=== PATIENT | male | born 1935 | race Caucasian/White ===

== ENCOUNTER 2019-11-21 04:51 | Inpatient (IN) | payer MEDICARE ==
[~2019-11-21] VITALS: Ht 167.6 cm; Wt 50.1 kg
[2019-11-21] VITALS: BP 148/81
[2019-11-21 06:47] LABS: CHLORIDE 108 mEq/L (98-107)
[2019-11-21 07:07] LABS: INR 1.2; PARTIAL THROMBOPLASTIN TIME 30.8 sec (23.4-31.0); PROTHROMBIN TIME 12.9 sec (9.6-11.0)
[2019-11-21] MEDS ORDERED: SODIUM CHLORIDE 0.9% 250 ML IV ONE (07:10)
[2019-11-21] MEDS ORDERED: ACETAMINOPHEN 325MG TABLET PO ONE (07:15)
[2019-11-21 07:19] LABS: BASOPHILS % 0.8 % (0.0-2.0); EOSINOPHILS % 1.4 % (0.0-5.0); HEMATOCRIT. 35.7 % (42.0-52.0); HEMOGLOBIN. 12.1 g/dL (14.0-18.0); LYMPHOCYTES % 18.8 % (20.0-50.0); MEAN CORPUSCULAR HEMOGLOBIN 32.2 pg (28.0-32.0); MEAN PLATELET VOLUME 7.9 fl (7.4-10.4); MONOCYTES % 9.8 % (2.0-8.0); NEUTROPHILS % 69.2 % (40.0-76.0); PLATELET 237 x1000/uL (130-400); RED BLOOD CELL COUNT 3.76 mill/uL (4.7-6.1); RED CELL DISTRIBUTION WIDTH 14.7 % (11.6-14.6)
[2019-11-21 07:30] LABS: CREATINE KINASE MB FRACTION 4.4 ng/mL (0.5-3.6)
[2019-11-21 08:20] LABS: CLARITY URINE CLEAR (CLEAR); COLOR URINE YELLOW (YELLOW); KETONES URINE TRACE (NEGATIVE); LEUKOCYTE ESTERASE URINE NEGATIVE (NEGATIVE); NITRITE URINE NEGATIVE (NEGATIVE); OCCULT BLOOD URINE NEGATIVE (NEGATIVE); PH URINE 5.5 (4.5-8.0); PROTEIN URINE NEGATIVE (NEGATIVE); SPECIFIC GRAVITY URINE 1.012 (1.005-1.030); UROBILINOGEN URINE 0.2 E.U./dL (0.2-1.0)
[2019-11-21] MEDS ORDERED: CLONIDINE 0.1MG TABLET PO PRN (10:45)
[2019-11-21] MEDS ORDERED: DIPHENHYDRAMINE 50MG/ML VIAL IV PRN (10:45)
[2019-11-21] MEDS ORDERED: ACETAMINOPHEN 325MG TABLET PO PRN ×2 (10:45)
[2019-11-21] MEDS ORDERED: ONDANSETRON HCL 4MG/2ML INJ IV PRN (10:45)
[2019-11-21] MEDS ORDERED: MAGNESIUM/ALUMINUM HYDROXIDE/SIMETHICONE 30ML UDC PO PRN (10:45)
[2019-11-21 12:00] VITALS: BP 132/71
[2019-11-21] MEDS ORDERED: ENOXAPARIN 30MG/0.3ML SYR SUBCUT SCH (12:00)
[2019-11-21 12:57] VITALS: BP 131/71
[2019-11-21] MEDS: SODIUM CHLORIDE 0.9% INJ 3ML FLUSH IVF SCH ×2 (14:20→21:46)
[2019-11-21 16:00] VITALS: BP 154/77
[2019-11-21] MEDS: ASPIRIN 81MG EC TABLET PO SCH (16:01)
[2019-11-21] MEDS: DOCUSATE SODIUM 100MG CAPSULE PO SCH ×2 (17:00→17:09)
[2019-11-21 20:17] VITALS: BP 139/83
[2019-11-21] MEDS ORDERED: ZOLPIDEM TARTRATE 5MG TABLET PO PRN (21:00)
[2019-11-21 21:40] LABS: VITAMIN B12 SERUM 345 pg/mL (211-911)
[2019-11-22 00:37] VITALS: BP 148/81
[2019-11-22 04:00] VITALS: BP 142/95
[2019-11-22] MEDS: SODIUM CHLORIDE 0.9% INJ 3ML FLUSH IVF SCH ×3 (06:35→20:48)
[2019-11-22 06:52] LABS: EOSINOPHILS % 2.7 % (0.0-5.0); HEMATOCRIT. 34.8 % (42.0-52.0); HEMOGLOBIN. 11.8 g/dL (14.0-18.0); LYMPHOCYTES % 17.7 % (20.0-50.0); MEAN CORPUSCULAR HEMOGLOBIN 32.1 pg (28.0-32.0); MEAN CORPUSCULAR VOLUME 94.9 fL (80.0-94.0); MEAN PLATELET VOLUME 7.8 fl (7.4-10.4); MONOCYTES % 12.5 % (2.0-8.0); NEUTROPHILS % 66.1 % (40.0-76.0); PLATELET 235 x1000/uL (130-400); RED BLOOD CELL COUNT 3.67 mill/uL (4.7-6.1); RED CELL DISTRIBUTION WIDTH 14.5 % (11.6-14.6)
[2019-11-22 06:53] LABS: CHLORIDE 107 mEq/L (98-107)
[2019-11-22 08:01] VITALS: BP 144/58
[2019-11-22] MEDS: DOCUSATE SODIUM 100MG CAPSULE PO SCH ×2 (08:52→18:36)
[2019-11-22] MEDS: ENOXAPARIN 40MG/0.4ML SYR SUBCUT SCH (08:53)
[2019-11-22] MEDS: ASPIRIN 81MG EC TABLET PO SCH (08:53)
[2019-11-22] MEDS ORDERED: DIGOXIN 500MCG/2ML AMP IV NR ×3 (10:00→20:30)
[2019-11-22 12:12] VITALS: BP 132/64
[2019-11-22] MEDS ORDERED: CYANOCOBALAMIN 1000MCG/ML VIAL IM NR (15:45)
[2019-11-22 16:20] VITALS: BP 136/74
[2019-11-22] MEDS: DIGOXIN 500MCG/2ML AMP IV SCH (18:35)
[2019-11-22 20:00] VITALS: BP 117/66
[2019-11-23] VITALS (8 sets, daily range): BP systolic 103–167; BP diastolic 59–98
[2019-11-23] MEDS: SODIUM CHLORIDE 0.9% INJ 3ML FLUSH IVF SCH ×3 (05:59→21:24)
[2019-11-23] MEDS: DOCUSATE SODIUM 100MG CAPSULE PO SCH ×2 (09:17→17:33)
[2019-11-23] MEDS: ASPIRIN 81MG EC TABLET PO SCH (09:17)
[2019-11-23] MEDS: ENOXAPARIN 40MG/0.4ML SYR SUBCUT SCH (09:17)
[2019-11-23] MEDS: DILTIAZEM HCL 30MG TABLET PO SCH ×3 (11:36→18:00)
[2019-11-23] MEDS: DIGOXIN 500MCG/2ML AMP IV SCH (17:33)
[2019-11-24 00:22] VITALS: BP 145/81
[2019-11-24] MEDS: DILTIAZEM HCL 30MG TABLET PO SCH ×3 (00:37→12:00)
[2019-11-24 04:42] VITALS: BP 138/72
[2019-11-24] MEDS: SODIUM CHLORIDE 0.9% INJ 3ML FLUSH IVF SCH ×2 (05:31→14:44)
[2019-11-24 07:31] LABS: EOSINOPHILS % 1.7 % (0.0-5.0); HEMATOCRIT. 36.2 % (42.0-52.0); HEMOGLOBIN. 12.5 g/dL (14.0-18.0); LYMPHOCYTES % 10.9 % (20.0-50.0); MEAN CORPUSCULAR HEMOGLOBIN 32.5 pg (28.0-32.0); MEAN CORPUSCULAR VOLUME 94.4 fL (80.0-94.0); MEAN PLATELET VOLUME 8.1 fl (7.4-10.4); MONOCYTES % 12.2 % (2.0-8.0); NEUTROPHILS % 74.2 % (40.0-76.0); PLATELET 223 x1000/uL (130-400); RED BLOOD CELL COUNT 3.84 mill/uL (4.7-6.1); RED CELL DISTRIBUTION WIDTH 14.2 % (11.6-14.6)
[2019-11-24 08:00] VITALS: BP 132/53
[2019-11-24 08:01] LABS: CHLORIDE 102 mEq/L (98-107)
[2019-11-24] MEDS: ENOXAPARIN 40MG/0.4ML SYR SUBCUT SCH (09:17)
[2019-11-24] MEDS: ASPIRIN 81MG EC TABLET PO SCH (09:17)
[2019-11-24] MEDS: DOCUSATE SODIUM 100MG CAPSULE PO SCH (09:17)
[2019-11-24 12:00] VITALS: BP 160/72
[2019-11-24 16:00] VITALS: BP 105/60
[2019-11-24 16:16] VITALS: BP 105/60
[2019-11-24] MEDS ORDERED: DIGOXIN 125MCG TABLET PO SCH (18:00)
== END 2019-11-24 17:25 | DRG 74 ==
LOC: ER 04:51 → 6WST 06:41 → ENRESERV 09:58
PROVIDERS: ADMIT Internal Medicine; ATTEND Internal Medicine
DX: G90.8 Other disorders of autonomic nervous system (principal); I11.9 Hypertensive heart disease without heart failure; I44.0 Atrioventricular block, first degree; I48.0 Paroxysmal atrial fibrillation; M47.812 Spondylosis without myelopathy or radiculopathy, cervical region; M48.02 Spinal stenosis, cervical region; G93.89 Other specified disorders of brain; M79.605 Pain in left leg; E78.5 Hyperlipidemia, unspecified; E78.00 Pure hypercholesterolemia, unspecified; I25.10 Atherosclerotic heart disease of native coronary artery without angina pectoris; R00.0 Tachycardia, unspecified; R29.6 Repeated falls; R53.81 Other malaise; W18.39XA Other fall on same level, initial encounter; Z86.73 Personal history of transient ischemic attack (TIA), and cerebral infarction without residual deficits; Z79.01 Long term (current) use of anticoagulants; I25.2 Old myocardial infarction; Z88.8 Allergy status to other drugs, medicaments and biological substances; Y93.89 Activity, other specified; Y92.89 Other specified places as the place of occurrence of the external cause; Y99.8 Other external cause status
CPT/HCPCS: 36415; 71045; 72170; 73590; 80048; 80053; 81003; 82550; 82553; 82607; 82962; 83735; 83880; 84443; 84484; 85025; 93005; 93306; 97116; 97162; 97166; 99285; J1160; J1650; J3420; J7050

== ENCOUNTER 2019-11-24 17:30 | Inpatient (IN) | payer MEDICARE ==
[~2019-11-24] VITALS: Ht 167.6 cm; Wt 65.4 kg
[2019-11-24] MEDS ORDERED: DIPHENHYDRAMINE 50MG/ML VIAL IV PRN (18:30)
[2019-11-24] MEDS ORDERED: ONDANSETRON HCL 4MG/2ML INJ IV PRN (18:30)
[2019-11-24] MEDS ORDERED: ACETAMINOPHEN 325MG TABLET PO PRN (18:30)
[2019-11-24] MEDS ORDERED: MAGNESIUM/ALUMINUM HYDROXIDE/SIMETHICONE 30ML UDC PO PRN (18:30)
[2019-11-24] MEDS ORDERED: CLONIDINE 0.1MG TABLET PO PRN (18:30)
[2019-11-24 18:40] VITALS: BP 157/72
[2019-11-24 20:00] VITALS: BP 157/72
[2019-11-24] MEDS ORDERED: ZOLPIDEM TARTRATE 5MG TABLET PO PRN (21:00)
[2019-11-24] MEDS: DILTIAZEM HCL 30MG TABLET PO SCH (22:03)
[2019-11-24] MEDS: ACETAMINOPHEN 325MG TABLET PO PRN (22:03)
[2019-11-25] MEDS: ACETAMINOPHEN 325MG TABLET PO PRN ×2 (05:45→21:05)
[2019-11-25] MEDS: DILTIAZEM HCL 30MG TABLET PO SCH ×3 (05:46→21:03)
[2019-11-25 07:31] VITALS: BP 144/64
[2019-11-25] MEDS: ASPIRIN 81MG EC TABLET PO SCH (08:11)
[2019-11-25] MEDS: DOCUSATE SODIUM 100MG CAPSULE PO SCH ×2 (08:11→17:19)
[2019-11-25] MEDS: ENOXAPARIN 40MG/0.4ML SYR SUBCUT SCH (08:12)
[2019-11-25] MEDS ORDERED: NA PHOS,M-B/NA PHOS,DI-BA ENEMA 118ML PR PRN (12:45)
[2019-11-25] MEDS: BISACODYL 10MG SUPP PR PRN (14:00)
[2019-11-25] MEDS: POLYVINYL ALCOHOL OPHTH DROPS 15ML BOTHEYE PRN (14:52)
[2019-11-25] MEDS: DIGOXIN 125MCG TABLET PO SCH (17:19)
[2019-11-25 20:00] VITALS: BP 162/67
[2019-11-25 21:41] VITALS: BP 149/65
[2019-11-26] MEDS: DILTIAZEM HCL 30MG TABLET PO SCH ×3 (05:42→21:01)
[2019-11-26 07:31] LABS: BASOPHILS % 0.6 % (0.0-2.0); EOSINOPHILS % 2.9 % (0.0-5.0); HEMOGLOBIN. 11.7 g/dL (14.0-18.0); LYMPHOCYTES % 11.5 % (20.0-50.0); MEAN CORPUSCULAR HEMOGLOBIN 32.4 pg (28.0-32.0); MEAN PLATELET VOLUME 8.1 fl (7.4-10.4); MONOCYTES % 11.4 % (2.0-8.0); NEUTROPHILS % 73.6 % (40.0-76.0); PLATELET 245 x1000/uL (130-400); RED BLOOD CELL COUNT 3.61 mill/uL (4.7-6.1); RED CELL DISTRIBUTION WIDTH 14.2 % (11.6-14.6)
[2019-11-26 07:50] LABS: CHLORIDE 99 mEq/L (98-107)
[2019-11-26 08:00] VITALS: BP 153/52
[2019-11-26] MEDS: DOCUSATE SODIUM 100MG CAPSULE PO SCH ×2 (10:01→18:03)
[2019-11-26] MEDS: ASPIRIN 81MG EC TABLET PO SCH (10:01)
[2019-11-26] MEDS: ENOXAPARIN 40MG/0.4ML SYR SUBCUT SCH (10:01)
[2019-11-26] MEDS ORDERED: ALLO100T MT (12:06)
[2019-11-26] MEDS ORDERED: DOFE500C4 MT (12:06)
[2019-11-26] MEDS ORDERED: MIRT15TA6 MT (12:06)
[2019-11-26] MEDS ORDERED: BIMA2.5D4 EACHEYE (12:06)
[2019-11-26] MEDS ORDERED: POLY119P2 MT (12:06)
[2019-11-26] MEDS ORDERED: TIMO5DRO32 EACHEYE (12:06)
[2019-11-26] MEDS ORDERED: RIVA20TA MT (12:06)
[2019-11-26] MEDS ORDERED: PRAV20TA57 MT (12:06)
[2019-11-26] MEDS ORDERED: TAMS-11 PO (12:06)
[2019-11-26] MEDS ORDERED: RIVAROXABAN 10 MG TABLET PO SCH (17:00)
[2019-11-26] MEDS: DIGOXIN 125MCG TABLET PO SCH (18:02)
[2019-11-26 20:00] VITALS: BP 156/76
[2019-11-26] MEDS: TIMOLOL MALEATE 0.5% OPHTH DROPS 5ML EACHEYE SCH (20:59)
[2019-11-26] MEDS: LATANOPROST 0.005% OPHTH DROPS 2.5ML EACHEYE SCH (20:59)
[2019-11-26] MEDS ORDERED: NON FORMULARY PATIENT HOME MED PO SCH (21:00)
[2019-11-26] MEDS ORDERED: NON FORMULARY PATIENT HOME MED OP SCH (21:00)
[2019-11-26] MEDS: TAMSULOSIN HCL 0.4MG SR CAPSULE PO SCH (21:00)
[2019-11-26] MEDS: ATORVASTATIN CALCIUM 10MG TABLET PO SCH (21:00)
[2019-11-27 08:09] VITALS: BP 143/68
[2019-11-27] MEDS: ASPIRIN 81MG EC TABLET PO SCH (09:59)
[2019-11-27] MEDS: TIMOLOL MALEATE 0.5% OPHTH DROPS 5ML EACHEYE SCH ×2 (10:00→22:52)
[2019-11-27] MEDS: DOCUSATE SODIUM 100MG CAPSULE PO SCH ×2 (10:00→16:59)
[2019-11-27] MEDS: ALLOPURINOL 100 MG TABLET PO SCH (10:00)
[2019-11-27] MEDS: DILTIAZEM HCL 30MG TABLET PO SCH ×3 (10:00→23:03)
[2019-11-27] MEDS: DIGOXIN 125MCG TABLET PO SCH (16:59)
[2019-11-27] MEDS: RIVAROXABAN 15 MG TABLET PO SCH (16:59)
[2019-11-27 20:00] VITALS: BP 109/83
[2019-11-27] MEDS: LATANOPROST 0.005% OPHTH DROPS 2.5ML EACHEYE SCH (22:52)
[2019-11-27] MEDS: TAMSULOSIN HCL 0.4MG SR CAPSULE PO SCH (22:53)
[2019-11-27] MEDS: ATORVASTATIN CALCIUM 10MG TABLET PO SCH (22:54)
[2019-11-28] MEDS: DILTIAZEM HCL 30MG TABLET PO SCH ×3 (06:00→21:59)
[2019-11-28 06:45] LABS: BASOPHILS % 1.2 % (0.0-2.0); EOSINOPHILS % 4.5 % (0.0-5.0); HEMATOCRIT. 32.6 % (42.0-52.0); HEMOGLOBIN. 11.1 g/dL (14.0-18.0); LYMPHOCYTES % 15.9 % (20.0-50.0); MEAN CORPUSCULAR HEMOGLOBIN 32.3 pg (28.0-32.0); MEAN CORPUSCULAR VOLUME 94.6 fL (80.0-94.0); MEAN PLATELET VOLUME 7.9 fl (7.4-10.4); MONOCYTES % 13.2 % (2.0-8.0); NEUTROPHILS % 65.2 % (40.0-76.0); PLATELET 251 x1000/uL (130-400); RED BLOOD CELL COUNT 3.44 mill/uL (4.7-6.1); RED CELL DISTRIBUTION WIDTH 14.2 % (11.6-14.6)
[2019-11-28 07:27] LABS: CHLORIDE 98 mEq/L (98-107)
[2019-11-28 08:44] VITALS: BP 140/61
[2019-11-28] MEDS: ALLOPURINOL 100 MG TABLET PO SCH (09:31)
[2019-11-28] MEDS: ASPIRIN 81MG EC TABLET PO SCH (09:31)
[2019-11-28] MEDS: DOCUSATE SODIUM 100MG CAPSULE PO SCH ×2 (09:31→17:18)
[2019-11-28] MEDS: TIMOLOL MALEATE 0.5% OPHTH DROPS 5ML EACHEYE SCH ×2 (09:32→22:00)
[2019-11-28] MEDS: RIVAROXABAN 15 MG TABLET PO SCH (17:18)
[2019-11-28] MEDS: BISACODYL 10MG SUPP PR PRN (17:19)
[2019-11-28 20:00] VITALS: BP 127/72
[2019-11-28] MEDS: ATORVASTATIN CALCIUM 10MG TABLET PO SCH (21:59)
[2019-11-28] MEDS: TAMSULOSIN HCL 0.4MG SR CAPSULE PO SCH (22:00)
[2019-11-28] MEDS: LATANOPROST 0.005% OPHTH DROPS 2.5ML EACHEYE SCH (22:00)
[2019-11-29] MEDS: DILTIAZEM HCL 30MG TABLET PO SCH ×3 (06:00→21:52)
[2019-11-29 08:00] VITALS: BP 122/61
[2019-11-29] MEDS: ALLOPURINOL 100 MG TABLET PO SCH (09:33)
[2019-11-29] MEDS: DOCUSATE SODIUM 100MG CAPSULE PO SCH ×2 (09:33→17:13)
[2019-11-29] MEDS: TIMOLOL MALEATE 0.5% OPHTH DROPS 5ML EACHEYE SCH ×2 (09:33→21:57)
[2019-11-29] MEDS: ASPIRIN 81MG EC TABLET PO SCH (09:33)
[2019-11-29] MEDS: RIVAROXABAN 15 MG TABLET PO SCH (17:13)
[2019-11-29] MEDS: DIGOXIN 125MCG TABLET PO SCH (17:13)
[2019-11-29 20:00] VITALS: BP 147/75
[2019-11-29] MEDS: ATORVASTATIN CALCIUM 10MG TABLET PO SCH (21:51)
[2019-11-29] MEDS: TAMSULOSIN HCL 0.4MG SR CAPSULE PO SCH (21:55)
[2019-11-29] MEDS: LATANOPROST 0.005% OPHTH DROPS 2.5ML EACHEYE SCH (21:58)
[2019-11-30] MEDS: BISACODYL 10MG SUPP PR PRN (06:37)
[2019-11-30] MEDS: DILTIAZEM HCL 30MG TABLET PO SCH ×3 (06:37→21:20)
[2019-11-30 08:00] VITALS: BP 136/77
[2019-11-30] MEDS: TIMOLOL MALEATE 0.5% OPHTH DROPS 5ML EACHEYE SCH ×2 (08:58→21:21)
[2019-11-30] MEDS: ALLOPURINOL 100 MG TABLET PO SCH (08:59)
[2019-11-30] MEDS: DOCUSATE SODIUM 100MG CAPSULE PO SCH ×3 (09:00→18:04)
[2019-11-30] MEDS: ASPIRIN 81MG EC TABLET PO SCH (09:00)
[2019-11-30] MEDS: RIVAROXABAN 15 MG TABLET PO SCH (17:31)
[2019-11-30 20:00] VITALS: BP 116/62
[2019-11-30] MEDS: TAMSULOSIN HCL 0.4MG SR CAPSULE PO SCH (21:20)
[2019-11-30] MEDS: ATORVASTATIN CALCIUM 10MG TABLET PO SCH (21:21)
[2019-11-30] MEDS: LATANOPROST 0.005% OPHTH DROPS 2.5ML EACHEYE SCH (21:22)
[2019-12-01] MEDS: DILTIAZEM HCL 30MG TABLET PO SCH ×3 (06:15→21:38)
[2019-12-01 08:00] VITALS: BP 131/54
[2019-12-01] MEDS: ALLOPURINOL 100 MG TABLET PO SCH (09:45)
[2019-12-01] MEDS: ASPIRIN 81MG EC TABLET PO SCH (09:45)
[2019-12-01] MEDS: DOCUSATE SODIUM 100MG CAPSULE PO SCH ×3 (09:45→17:13)
[2019-12-01] MEDS: TIMOLOL MALEATE 0.5% OPHTH DROPS 5ML EACHEYE SCH ×2 (09:45→21:35)
[2019-12-01] MEDS: RIVAROXABAN 15 MG TABLET PO SCH (17:13)
[2019-12-01] MEDS: DIGOXIN 125MCG TABLET PO SCH (17:13)
[2019-12-01 20:00] VITALS: BP 115/46
[2019-12-01] MEDS: LATANOPROST 0.005% OPHTH DROPS 2.5ML EACHEYE SCH (21:35)
[2019-12-01] MEDS: TAMSULOSIN HCL 0.4MG SR CAPSULE PO SCH (21:36)
[2019-12-01] MEDS: ATORVASTATIN CALCIUM 10MG TABLET PO SCH (21:36)
[2019-12-02] MEDS: DILTIAZEM HCL 30MG TABLET PO SCH ×3 (06:09→21:36)
[2019-12-02 08:00] VITALS: BP_SYST 122; BP_SYST 143; BP_DIAS 65; BP_DIAS 68
[2019-12-02] MEDS: ALLOPURINOL 100 MG TABLET PO SCH (09:51)
[2019-12-02] MEDS: TIMOLOL MALEATE 0.5% OPHTH DROPS 5ML EACHEYE SCH ×2 (09:51→21:35)
[2019-12-02] MEDS: ASPIRIN 81MG EC TABLET PO SCH (09:51)
[2019-12-02] MEDS: DOCUSATE SODIUM 100MG CAPSULE PO SCH ×2 (09:52→16:16)
[2019-12-02 13:49] VITALS: BP 104/57
[2019-12-02] MEDS: POLYVINYL ALCOHOL OPHTH DROPS 15ML BOTHEYE PRN (15:24)
[2019-12-02] MEDS: RIVAROXABAN 15 MG TABLET PO SCH (16:16)
[2019-12-02 20:00] VITALS: BP 112/52
[2019-12-02] MEDS: ATORVASTATIN CALCIUM 10MG TABLET PO SCH (21:37)
[2019-12-02] MEDS: LATANOPROST 0.005% OPHTH DROPS 2.5ML EACHEYE SCH (21:39)
[2019-12-02] MEDS: TAMSULOSIN HCL 0.4MG SR CAPSULE PO SCH (21:39)
[2019-12-03] MEDS: DILTIAZEM HCL 30MG TABLET PO SCH ×2 (05:52→21:19)
[2019-12-03 06:50] LABS: CHLORIDE 99 mEq/L (98-107)
[2019-12-03 06:56] LABS: BASOPHILS % 0.6 % (0.0-2.0); EOSINOPHILS % 2.7 % (0.0-5.0); HEMATOCRIT. 31.5 % (42.0-52.0); HEMOGLOBIN. 10.8 g/dL (14.0-18.0); LYMPHOCYTES % 18.2 % (20.0-50.0); MEAN CORPUSCULAR HEMOGLOBIN 31.8 pg (28.0-32.0); MEAN PLATELET VOLUME 7.2 fl (7.4-10.4); NEUTROPHILS % 66.5 % (40.0-76.0); PLATELET 312 x1000/uL (130-400); RED BLOOD CELL COUNT 3.39 mill/uL (4.7-6.1); RED CELL DISTRIBUTION WIDTH 14.3 % (11.6-14.6)
[2019-12-03 07:59] VITALS: BP 120/52
[2019-12-03] MEDS: DOCUSATE SODIUM 100MG CAPSULE PO SCH ×2 (08:55→18:02)
[2019-12-03] MEDS: ASPIRIN 81MG EC TABLET PO SCH (08:55)
[2019-12-03] MEDS: TIMOLOL MALEATE 0.5% OPHTH DROPS 5ML EACHEYE SCH ×3 (08:55→23:39)
[2019-12-03] MEDS: POLYVINYL ALCOHOL OPHTH DROPS 15ML BOTHEYE PRN (08:55)
[2019-12-03] MEDS: ALLOPURINOL 100 MG TABLET PO SCH (08:55)
[2019-12-03] MEDS: RIVAROXABAN 15 MG TABLET PO SCH (18:02)
[2019-12-03] MEDS: BISACODYL 5MG TABLET PO PRN (18:56)
[2019-12-03 20:00] VITALS: BP 112/57
[2019-12-03] MEDS: ATORVASTATIN CALCIUM 10MG TABLET PO SCH (21:19)
[2019-12-03] MEDS: TAMSULOSIN HCL 0.4MG SR CAPSULE PO SCH (21:20)
[2019-12-03] MEDS: LATANOPROST 0.005% OPHTH DROPS 2.5ML EACHEYE SCH (21:20)
[2019-12-04 08:27] VITALS: BP 105/59
[2019-12-04] MEDS: DOCUSATE SODIUM 100MG CAPSULE PO SCH ×2 (08:55→16:17)
[2019-12-04] MEDS: ALLOPURINOL 100 MG TABLET PO SCH (08:55)
[2019-12-04] MEDS: DILTIAZEM HCL 30MG TABLET PO SCH ×2 (08:55→21:31)
[2019-12-04] MEDS: ASPIRIN 81MG EC TABLET PO SCH (08:55)
[2019-12-04] MEDS: TIMOLOL MALEATE 0.5% OPHTH DROPS 5ML EACHEYE SCH ×2 (08:56→21:24)
[2019-12-04] MEDS: RIVAROXABAN 15 MG TABLET PO SCH (16:17)
[2019-12-04] MEDS: BISACODYL 5MG TABLET PO PRN (17:42)
[2019-12-04 20:00] VITALS: BP 112/64
[2019-12-04] MEDS: LATANOPROST 0.005% OPHTH DROPS 2.5ML EACHEYE SCH (21:25)
[2019-12-04] MEDS: ATORVASTATIN CALCIUM 10MG TABLET PO SCH (21:31)
[2019-12-04] MEDS: TAMSULOSIN HCL 0.4MG SR CAPSULE PO SCH (21:37)
[2019-12-05 06:10] LABS: CHLORIDE 100 mEq/L (98-107)
[2019-12-05 06:19] LABS: BASOPHILS % 0.4 % (0.0-2.0); EOSINOPHILS % 0.6 % (0.0-5.0); HEMATOCRIT. 31.8 % (42.0-52.0); HEMOGLOBIN. 10.8 g/dL (14.0-18.0); LYMPHOCYTES % 7.6 % (20.0-50.0); MEAN CORPUSCULAR HEMOGLOBIN 31.6 pg (28.0-32.0); MEAN CORPUSCULAR VOLUME 93.3 fL (80.0-94.0); MEAN PLATELET VOLUME 7.6 fl (7.4-10.4); MONOCYTES % 9.1 % (2.0-8.0); NEUTROPHILS % 82.3 % (40.0-76.0); PLATELET 329 x1000/uL (130-400); RED BLOOD CELL COUNT 3.41 mill/uL (4.7-6.1); RED CELL DISTRIBUTION WIDTH 14.1 % (11.6-14.6)
[2019-12-05] MEDS: BISACODYL 10MG SUPP PR PRN (06:51)
[2019-12-05 08:15] VITALS: BP 130/55
[2019-12-05] MEDS: DOCUSATE SODIUM 100MG CAPSULE PO SCH ×2 (09:07→18:22)
[2019-12-05] MEDS: ALLOPURINOL 100 MG TABLET PO SCH (09:07)
[2019-12-05] MEDS: DILTIAZEM HCL 30MG TABLET PO SCH ×2 (09:07→22:02)
[2019-12-05] MEDS: ASPIRIN 81MG EC TABLET PO SCH (09:07)
[2019-12-05] MEDS: TIMOLOL MALEATE 0.5% OPHTH DROPS 5ML EACHEYE SCH ×2 (09:26→22:05)
[2019-12-05] MEDS: RIVAROXABAN 15 MG TABLET PO SCH (18:22)
[2019-12-05 20:00] VITALS: BP 140/59
[2019-12-05] MEDS: ATORVASTATIN CALCIUM 10MG TABLET PO SCH (22:03)
[2019-12-05] MEDS: ACETAMINOPHEN 325MG TABLET PO PRN (22:03)
[2019-12-05] MEDS: TAMSULOSIN HCL 0.4MG SR CAPSULE PO SCH (22:04)
[2019-12-05] MEDS: LATANOPROST 0.005% OPHTH DROPS 2.5ML EACHEYE SCH (22:05)
[2019-12-06 08:00] VITALS: BP 117/62
[2019-12-06] MEDS: DOCUSATE SODIUM 100MG CAPSULE PO SCH ×2 (08:35→17:29)
[2019-12-06] MEDS: DILTIAZEM HCL 30MG TABLET PO SCH ×2 (08:35→23:02)
[2019-12-06] MEDS: ASPIRIN 81MG EC TABLET PO SCH (08:35)
[2019-12-06] MEDS: TIMOLOL MALEATE 0.5% OPHTH DROPS 5ML EACHEYE SCH ×2 (08:36→23:02)
[2019-12-06] MEDS: ALLOPURINOL 100 MG TABLET PO SCH (08:39)
[2019-12-06] MEDS: POLYVINYL ALCOHOL OPHTH DROPS 15ML BOTHEYE PRN (12:43)
[2019-12-06 15:59] LABS: CLARITY URINE TURBID (CLEAR); COLOR URINE DARK YELLOW (YELLOW); KETONES URINE TRACE (NEGATIVE); LEUKOCYTE ESTERASE URINE 3+ (NEGATIVE); NITRITE URINE POSITIVE (NEGATIVE); OCCULT BLOOD URINE 3+ (NEGATIVE); PH URINE 5.5 (4.5-8.0); PROTEIN URINE 2+ (NEGATIVE); SPECIFIC GRAVITY URINE 1.023 (1.005-1.030)
[2019-12-06] MEDS: RIVAROXABAN 15 MG TABLET PO SCH (17:29)
[2019-12-06 20:00] VITALS: BP 134/64
[2019-12-06] MEDS: LATANOPROST 0.005% OPHTH DROPS 2.5ML EACHEYE SCH (23:02)
[2019-12-06] MEDS: ATORVASTATIN CALCIUM 10MG TABLET PO SCH (23:03)
[2019-12-06] MEDS: TAMSULOSIN HCL 0.4MG SR CAPSULE PO SCH (23:03)
[2019-12-06] MEDS: SULFAMETHOXAZOLE/TRIMETHOPRIM 800/160MG TABLET PO SCH (23:03)
[2019-12-07 08:00] VITALS: BP 102/47
[2019-12-07] MEDS: DILTIAZEM HCL 30MG TABLET PO SCH ×2 (09:00→20:57)
[2019-12-07] MEDS: ASPIRIN 81MG EC TABLET PO SCH (09:51)
[2019-12-07] MEDS: DOCUSATE SODIUM 100MG CAPSULE PO SCH ×2 (09:51→18:09)
[2019-12-07] MEDS: TIMOLOL MALEATE 0.5% OPHTH DROPS 5ML EACHEYE SCH ×2 (09:51→20:56)
[2019-12-07] MEDS: SULFAMETHOXAZOLE/TRIMETHOPRIM 800/160MG TABLET PO SCH ×2 (09:52→20:58)
[2019-12-07] MEDS: ALLOPURINOL 100 MG TABLET PO SCH (09:52)
[2019-12-07] MEDS: RIVAROXABAN 15 MG TABLET PO SCH (18:09)
[2019-12-07 20:16] VITALS: BP 139/71
[2019-12-07] MEDS: LATANOPROST 0.005% OPHTH DROPS 2.5ML EACHEYE SCH (20:55)
[2019-12-07] MEDS: ATORVASTATIN CALCIUM 10MG TABLET PO SCH (20:56)
[2019-12-07] MEDS: TAMSULOSIN HCL 0.4MG SR CAPSULE PO SCH (20:58)
[2019-12-08 06:41] LABS: CHLORIDE 97 mEq/L (98-107)
[2019-12-08 07:12] LABS: BASOPHILS % 0.7 % (0.0-2.0); EOSINOPHILS % 1.2 % (0.0-5.0); HEMATOCRIT. 30.7 % (42.0-52.0); HEMOGLOBIN. 10.4 g/dL (14.0-18.0); LYMPHOCYTES % 8.7 % (20.0-50.0); MEAN CORPUSCULAR HEMOGLOBIN 31.8 pg (28.0-32.0); MEAN PLATELET VOLUME 7.3 fl (7.4-10.4); MONOCYTES % 11.5 % (2.0-8.0); NEUTROPHILS % 77.9 % (40.0-76.0); PLATELET 310 x1000/uL (130-400); RED BLOOD CELL COUNT 3.26 mill/uL (4.7-6.1); RED CELL DISTRIBUTION WIDTH 14.2 % (11.6-14.6)
[2019-12-08 08:10] VITALS: BP 130/77
[2019-12-08] MEDS: DILTIAZEM HCL 30MG TABLET PO SCH (08:24)
[2019-12-08] MEDS: DOCUSATE SODIUM 100MG CAPSULE PO SCH (08:24)
[2019-12-08] MEDS: TIMOLOL MALEATE 0.5% OPHTH DROPS 5ML EACHEYE SCH (08:24)
[2019-12-08] MEDS: ASPIRIN 81MG EC TABLET PO SCH (08:25)
[2019-12-08] MEDS: SULFAMETHOXAZOLE/TRIMETHOPRIM 800/160MG TABLET PO SCH (08:25)
[2019-12-08] MEDS: ALLOPURINOL 100 MG TABLET PO SCH (08:25)
[2019-12-08 12:27] VITALS: BP 130/77
== END 2019-12-08 13:30 | disposition home or self-care (01) | DRG 71 ==
PROVIDERS: ADMIT Psychiatry & Neurology Neurology; ATTEND Internal Medicine
DX: G93.40 Encephalopathy, unspecified (principal); N39.0 Urinary tract infection, site not specified; E78.00 Pure hypercholesterolemia, unspecified; I10 Essential (primary) hypertension; I48.0 Paroxysmal atrial fibrillation; R32 Unspecified urinary incontinence; E78.5 Hyperlipidemia, unspecified; I34.0 Nonrheumatic mitral (valve) insufficiency; I44.0 Atrioventricular block, first degree; I49.1 Atrial premature depolarization; J44.9 Chronic obstructive pulmonary disease, unspecified; H40.9 Unspecified glaucoma; M47.812 Spondylosis without myelopathy or radiculopathy, cervical region; R29.6 Repeated falls; R62.7 Adult failure to thrive; R15.9 Full incontinence of feces; J40 Bronchitis, not specified as acute or chronic; G90.8 Other disorders of autonomic nervous system; F03.90 Unspecified dementia, unspecified severity, without behavioral disturbance, psychotic disturbance, mood disturbance, and anxiety; Z79.01 Long term (current) use of anticoagulants; Z79.82 Long term (current) use of aspirin; Z79.899 Other long term (current) drug therapy; Z86.73 Personal history of transient ischemic attack (TIA), and cerebral infarction without residual deficits; Z91.81 History of falling; Z88.1 Allergy status to other antibiotic agents
CPT/HCPCS: 36415; 80048; 81003; 85025; 87077; 92523; 92610; 93005; 93970; 97110; 97116; 97162; 97166; 97530; 97535; J1650; U0003-CS